=== PATIENT | female | born 2000 | race Caucasian/White ===

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

== ENCOUNTER 2022-09-18 11:27 | Emergency (ER) | payer OTHER, MEDICAID, SELFPAY ==
--- NOTE | 2022-09-18 11:30 | DI.RAD_ITS ---
Exam(s) XR FOOT RT COMPLETE EXAM: XR FOOT RT COMPLETE CLINICAL HISTORY: lateral foot injury. TECHNIQUE: 2D digital imaging was performed. Three views. COMPARISON: CR XR foot RT complete from 04/18/2018 FINDINGS: BONES: No acute fracture is present. No bony destructive lesion is seen. JOINTS: No dislocation present. SOFT TISSUE: Normal. IMPRESSION: Unremarkable radiographs of the right foot. DATA REPOSITORY: RADIATION DOSE DELIVERED:
[2022-09-18 11:32] VITALS: BP 126/76; PULSE 91; TEMP 36.6; O2SAT 98
--- NOTE | 2022-09-18 11:49 | W.ED.GENAD ---
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 You may perform weightbearing activities as tolerated. If not improving in the next 1 to 2 weeks please follow-up with your primary care provider for reassessment otherwise return to the emergency department for new or significant worsening of symptoms. Stand Alone Forms: Work Release Referrals: Clari Levy, DENTOFACIAL ORTHOPEDICS DENTIST [Primary Care Provider] - (As needed for recheck) Discharge Data Discharge Date/Time-TO BE ENTERED AT DEPARTURE: 09/18/22 13:17 Medical Decision Making Patient presenting to the emergency department for chief complaint of right foot injury. Patient reports last night she stepped in a hole and injured the lateral aspect of her foot. Patient denies any other injury or trauma. Patient has no significant past medical history that is concerning in regards to this digit injury. Physical exam shows ecchymosis abrasion and tenderness to the mid lateral aspect of the right foot. No tenderness at the base of the fifth metatarsal, range of motion of foot and toes intact and no other areas of tenderness. We will plan on performing radiological imaging for concern of fourth or fifth metatarsal fracture. Given appearance of wound I doubt this is an open fracture and wound appears more like an abrasion. Patient states no need of pain medication pending results. Review of radiological imaging and radiologist interpretation shows no acute findings. Patient placed in postop shoe. Patient attempted ambulation but still had significant amount of pain with weightbearing. Will place patient on crutches to use over the next 2 to 3 days and then may perform weightbearing activities as tolerated. Patient to follow-up with primary care provider if not improving in the next 1 to 2 weeks or return for new or worsening symptoms. Conservative management otherwise discussed. After discussion of diagnosis and plan of care patient has no further needs, questions, or concerns and states clear understanding to return to the emergency department for any worsening symptoms. This documentation was generated using [employer] system, please disregard any oddities of phrase or misspellings. Imaging Data Radiologic Study: Imaging: X-Ray Radiologist's impression: Exam(s) PROCEDURE INFORMATION: Exam: XR Right Foot Exam date and time: 09/18/2022 12:14 PM Age: 21 years old Clinical indication: Injury or trauma; Other: Cut on lateral right foot; Other: Cut lateral right foot TECHNIQUE: Imaging protocol: Radiologic exam of the right foot. Views: 3 or more views. Non-weightbearing AP, oblique and lateral images. COMPARISON: CR XR foot RT complete 04/18/2018 11:36 AM FINDINGS: Bones/joints: The bones are well mineralized. The joint spaces are preserved. Examination negative for fracture or dislocation. Soft tissues: Normal. IMPRESSION: No acute findings. The area of the laceration is not appreciated. HPI General Mode of arrival: wheelchair. Date/Time Provider Initiated Documentation: 09/18/22 11:27. Limitations to Documentation: no limitations. Information obtained by: patient. History of Present Illness 21 year old F presents to the emergency department with the chief complaint of Right foot injury, described as moderate, with intensity rated at 6. Quality is described as aching, and is localized to the right and lower extremity. Patient reports no radiation. Patient started experiencing this day(s) (1) and it has been constant. Patient notes no other symptoms.. Patient did receive the following treatments prior to arrival, none Related Data Home Medications Medication Instructions Recorded Confirmed ibuprofen 200 mg tablet 600 mg PO DAILY PRN 07/24/17 09/18/22 methylphenidate HCl 27 mg 27 mg PO QAM #30 tabs 03/19/22 09/18/22 tablet,extended release 24 hr duloxetine 20 mg capsule,delayed 20 mg PO DAILY #90 caps 09/14/22 09/18/22 release (Cymbalta) Previous Rx's Medication Instructions Recorded methylphenidate HCl 27 mg 27 mg PO QAM #30 tabs 03/19/22 tablet,extended release 24 hr duloxetine 20 mg capsule,delayed 20 mg PO DAILY #90 caps 09/14/22 release (Cymbalta) Allergies Allergy/AdvReac Type Severity Reaction Status Date / Time No Known Allergies Allergy Verified 05/12/22 09:55 cats Allergy Mild Uncoded 09/18/22 11:35 Seasonal Allergy Mild Uncoded 09/18/22 11:35 General Stated Complaint: Orthopedic ARON: 4 Review of Systems Narrative: 6 systems reviewed and unremarkable except what is marked below. Musculoskeletal Musculoskeletal: Reports as per HPI, Reports arthralgias and Reports joint swelling Integumentary/Breasts Skin/Breast: Reports unusual bruising and Reports wounds PFSH All Active Problems (Updated 09/18/22 @ 13:00 by David Macdonald NP) Other sprain of right foot, initial encounter (Acute) Dyspareunia in female (Acute) Presence of subdermal contraceptive implant (Acute ~11/18/20) Fibrocystic breast changes of both breasts (Acute) control counseling (Acute) Generalized anxiety disorder (Acute) ADHD (attention deficit hyperactivity disorder), combined type (Acute) Anxiety and depression (Chronic) Constipation (Acute 03/07/13) Ingrowing toenail (Acute 03/07/13) Psoriasis (Acute 07/01/14) Recurrent urinary tract infection (Acute 02/22/12) Routine child health exam (Acute 08/13/11) Psoriasis (Acute 07/01/14) involving scalp. tretaed by Dr. Bravo with Humira- q 6 mo f/u's Pityriasis amiantacea (Acute 02/16/16) [place] [facility] [facility] [place] Normal weight, pediatric, BMI 5th to 84th percentile for age (Acute 10/05/16) Migraine without aura and without status migrainosus, not intractable (Acute 11/06/15) Depression with anxiety (Acute 08/04/16) Constipation (Acute 03/07/13) BMI,pediatric 85% - <95% (Acute 03/07/13) Avascular necrosis of bone (Acute 10/19/17) Avascular Necrosis of the fibular sesamoid Atopic dermatitis (Acute 02/16/16) [place] [facility] [place] History Atopic dermatitis Depression with anxiety Migraines Pityriasis amiantacea Urinary tract infection times 2 , with normal Renal U/S 2009 Family History Other Essential hypertension maternal Diabetes maternal Alcohol abuse mat uncle Personal history of malignant neoplasm maternal Heart disease maternal Hyperlipidemia maternal Mental disorder paternal aunts MGM- paranoid Myocardial infarction maternal Neoplasm Maternal GF Stroke PGF Asthma maternal Father Healthy adult on routine physical examination Attention and concentration deficit Sister ADHD (attention deficit hyperactivity disorder), combined type Social History Smoking/Tobacco Use Status: Never Second Hand Exposure: Yes Smoking risk assessment performed?: Yes Alcohol Intake: never Drug use: Never Substance use type: does not use Household members: family Education Level: college Details: [employer] 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 Pets and animals: Yes (2 cats and a dog.) Pets and animals: cat(s) and dog(s) Do you feel safe at home: Yes Do you feel safe in your relationship?: Yes Female Reproductive History Menstrual control method: implanted History History 0 Para Hx # Term Pregnancies Multiple births Hx # Pregnancies Ectopic pregnancies AB induced Hx Number of Living Children AB spontaneous Exam Const General: cooperative, no acute distress and not ill appearing Orientation: alert, awake and oriented x3 HENMT Mouth: moist mucous membranes Resp Effort & Inspection: normal respiratory effort, able to speak in complete sentences and no respiratory distress Cardio Rate: regular rate Rhythm: regular rhythm Pulses: normal peripheral pulses Skin General skin exam: no rashes or lesions noted Neuro General: patient alert, patient awake, patient oriented x3, moves all extremities and no focal motor deficits Sensory Exam: no sensory deficits noted Extrem General: normal exam except as noted Right lower extremity: foot Details: normal capillary refill, tenderness Location: of the lateral foot Location: in the mid-section; not at the base of 5th metatarsal, toes with normal ROM, abrasion lateral mid , ecchymosis lateral mid , vascular exam Details: dorsalis pedis pulse present and normal capillary refill, tendon exam Details: active flexion normal and active extension normal and motor-sensory exam Details: two point discrimination normal and light-touch normal Course Vital Signs Vital signs: Vital Signs Temperature 36.6 C 09/18/22 11:32 Pulse 91 H 09/18/22 11:32 Blood Pressure 126/76 09/18/22 11:32 Pulse Oximetry 98 09/18/22 11:32 Temperature 36.6 C 09/18/22 11:32 Temperature Source Oral 09/18/22 11:32 Pulse 91 H 09/18/22 11:32 Respiratory Effort Normal, Non-Labored 09/18/22 11:35 Blood Pressure 126/76 09/18/22 11:32 Blood Pressure Position Sitting 09/18/22 11:32 Pulse Oximetry 98 09/18/22 11:32 Oxygen Delivery Method Room Air 09/18/22 11:32 Oxygen Flow Rate 0 09/18/22 11:32
--- NOTE | 2022-09-18 12:32 | DI.VRAD_ITS ---
PROCEDURE INFORMATION: Exam: XR Right Foot Exam date and time: 09/18/2022 12:14 PM Age: 21 years old Clinical indication: Injury or trauma; Other: Cut on lateral right foot; Other: Cut lateral right foot TECHNIQUE: Imaging protocol: Radiologic exam of the right foot. Views: 3 or more views. Non-weightbearing AP, oblique and lateral images. COMPARISON: CR XR foot RT complete 04/18/2018 11:36 AM FINDINGS: Bones/joints: The bones are well mineralized. The joint spaces are preserved. Examination negative for fracture or dislocation. Soft tissues: Normal. IMPRESSION: No acute findings. The area of the laceration is not appreciated. Dictated and Authenticated by: Sree Chappell MD. Ordering:RORY Hernandez MD
== END 2022-09-18 13:17 | disposition home or self-care (01) ==
PROVIDERS: Emergency Provider Nurse Practitioner Family; PCP Nurse Practitioner Family
DX: S93.601A Unspecified sprain of right foot, initial encounter (principal); W17.2XXA Fall into hole, initial encounter
CPT/HCPCS: 81025; 99283; 73630

== ENCOUNTER 2024-05-07 11:49 | Outpatient (REF) | payer OTHER, SELFPAY ==
--- NOTE | 2024-05-07 11:40 | PAPFT_PTH ---
PATIENT: Ceci Sanchez LOC: [facility] U#:[id number] AGE/SX: 23/F ROOM: RE05/07/[address]: Madelyn Jackman NP : 2000 BED: DIS: 05/07/2024 SPEC #: [id number] RECD: 05/07/24 13:12 STATUS: TRISTA REAlexys #: [id number] DOREEN: 05/07/24 11:[address]: Madelyn Jackman NP DEPT: [facility] Cytology RECD BY: Isabel Sanderson ENTERED: 05/07/24 13:12 SP TYPE: PAPFT OTHR DR: Clari Levy Tissues: 1 - CX/ENDOCX FOR PAP SMEARS Procedures: PAP THIN PREP/[facility] Screening Comments: [id number]
== END 2024-05-07 11:50 | disposition home or self-care (01) ==
LOC: LBN 11:49
PROVIDERS: PCP Nurse Practitioner Family; Visit Provider Nurse Practitioner Women's Health
DX: Z12.4 Encounter for screening for malignant neoplasm of cervix (principal)
CPT/HCPCS: 88142